=== PATIENT | female | born 2000 | race Two or more races ===

== ENCOUNTER 2024-06-24 20:53 | Emergency (ER) | payer MEDICAID, SELFPAY ==
[2024-06-24 20:54] VITALS: BMI 27.3
[2024-06-24 21:57] VITALS: BP 113/72; PULSE 80; RESP 18; TEMP 37.1; O2SAT 97
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
[2024-06-24 23:05] VITALS: BP 108/72; PULSE 86; RESP 17; TEMP 37.1; O2SAT 100
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
--- NOTE | 2024-06-24 23:57 | PC.NURSE ---
SPOKE TO KARLI FROM [place] [employer] DISPATCH #[phone], PER KARLI WILL SEE IF [employer] WILL COME AND DO AN AOI.
--- NOTE | 2024-06-25 00:07 | PC.NURSE ---
SPOKE TO [employer] OFFICER NICOLA BUSTOS NUMBER #[id number], WHO STATED IF PT WANTS TO FILE A COMPLAINT SHE WILL NEED TO GO TO D PERSONALLY. PT INFORMED BY TRIAGE NURSE AND PT VERBALLY STATED SHE UNDERSTANDS.
[2024-06-25 00:21] VITALS: BP 124/62; PULSE 78; RESP 18; TEMP 36.6; O2SAT 99
== END 2024-06-25 00:22 | disposition home or self-care (01) ==
PROVIDERS: Emergency Provider Emergency Medicine
DX: S02.609A Fracture of mandible, unspecified, initial encounter for closed fracture (principal); Y09 Assault by unspecified means
CPT/HCPCS: 70450; 70486; 99284